=== PATIENT | male | born 2000 | race African-American/Black ===

== ENCOUNTER 2020-02-14 14:29 | Emergency (ER) | payer MEDICAID ==
[~2020-02-14] VITALS: Ht 188 cm; Wt 86.0 kg
[2020-02-14 16:46] VITALS: BP 148/76
== END 2020-02-14 16:46 | disposition home or self-care (01) ==
LOC: ER 14:29
DX: M25.562 Pain in left knee (principal); M25.561 Pain in right knee
CPT/HCPCS: 99282